=== PATIENT | male | born 1935 | race Caucasian/White ===

== ENCOUNTER 2018-09-02 13:13 | Inpatient (IN) | payer OTHER, BC ==
[2018-09-02 13:37] VITALS: BMI 25.1
--- NOTE | 2018-09-02 13:54 | PDOC ---
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 4 days ago pt was able to attend f/u with physician at [facility] with only a complaint of increased tiredness which was attributed to an inability to sleep and some constipation which has resolved since that visit. Family expresses concern that patient has been taking melatonin for sleep and was concerned this morning that increased lethargy was side effect of melatonin, however brought him in when he did not return to baseline this morning after a while. The family states he has had no specific complaints in the last few days other than feeling tired. <Florentin Shine - Last Filed: 09/02/18 19:50> - General Chief Complaint: SIRS, Suspected/Possible Stated Complaint: LETHARGY Past History <RenanJs - Last Filed: 09/02/18 18:25> <Klarissa Mcghee - Last Filed: 09/02/18 19:47> - Past Medical History Anemia: Yes (JULIET) Asthma: Yes Cancer: Yes (renal) Cardiac Disorders: No CVA: No COPD: Yes CHF: No Dementia: No Diabetes: Yes GI Disorders: Yes (COLON POLYPS;BARRETTS;GERD) Disorders: No HTN: Yes Hypercholesterolemia: Yes Liver Disease: No Seizures: No Thyroid Disease: No - Surgical History Abdominal Surgery: No Appendectomy: No Cardiac Surgery: No Cholecystectomy: No Lung Surgery: No Neurologic Surgery: No Orthopedic Surgery: Yes (knee sx b/l RIGHT KNEE LIGAMENT SX, LEFT KNEE) - Suicide/Smoking/Psychosocial Hx Smoking History: Former smoker Have you smoked in the past 12 months: No Number of Cigarettes Smoked Daily: 10 Information on smoking cessation initiated: No 'Breaking Loose' booklet given: 03/18/16 Hx Alcohol Use: No Drug/Substance Use Hx: No Substance Use Type: None Hx Substance Use Treatment: No <Florentin Shine - Last Filed: 09/02/18 19:50> - Past Medical History Allergies/Adverse Reactions: Allergies Allergy/AdvReac Type Severity Reaction Status Date / Time No Known Drug Allergies Allergy Verified 03/18/16 13:43 Home Medications: Ambulatory Orders Albuterol Sulfate [Proair Hfa] 8.5 gm IH PRN PRN 09/02/18 Fenofibrate Nanocrystallized [Tricor] 145 mg PO DAILY 09/02/18 Finasteride [Proscar] 5 mg PO DAILY 09/02/18 Fluticasone Propionate [Flovent Diskus] 250 mcg IH DAILY 09/02/18 Furosemide [Lasix] 40 mg PO DAILY 09/02/18 Ipratropium/Albuterol Sulfate [Combivent Respimat Inhal [place]] 4 gm IH DAILY 08/22 Meloxicam 7.5 mg PO DAILY 09/02/18 Metoprolol Tartrate 150 mg PO BID 09/02/18 Pregabalin [Lyrica] 100 mg PO BID 09/02/18 Sitagliptin Phosphate [Januvia] 50 mg PO DAILY 09/02/18 Tamsulosin HCl [Flomax] 0.4 mg PO DAILY 09/02/18 Tiotropium [place] [Spiriva Respimat] 4 gm IH DAILY 09/02/18 *Physical Exam - Vital Signs Last Vital Signs Temp Pulse Resp BP Pulse Ox 97.7 F 85 18 105/69 95 09/02/18 17:57 09/02/18 17:57 09/02/18 17:57 09/02/18 17:57 09/02/18 17:57 <Js Urrutia - Last Filed: 09/02/18 18:25> - Vital Signs Last Vital Signs Temp Pulse Resp BP Pulse Ox 97.7 F 85 18 105/69 95 09/02/18 17:57 09/02/18 17:57 09/02/18 17:57 09/02/18 17:57 09/02/18 17:57 <Klarissa Mcghee - Last Filed: 09/02/18 19:47> - Vital Signs Last Vital Signs Temp Pulse Resp BP Pulse Ox 101.8 F H 102 H 20 128/80 74 L 09/02/18 13:15 09/02/18 13:15 09/02/18 13:15 09/02/18 13:15 09/02/18 13:15 - Physical Exam Comments: 09/02/18 13:54 GEN: minimally alert, unable to assess orientation HEENT: Very dry mucus membranes, PERRL NECK: no lymphadenopathy HEART: Tachycardic, regular rhythm, no murmurs noted LUNGS: Decreased breath sounds on the right towards the base ABDOMEN: Concave abdomen, otherwise soft with no grimace to palpation noted EXTREMITIES: 1+ pulses, 4 second capillary refilling time NEURO: Not following commands or able to comply with neurological assessment <Florentin Shine - Last Filed: 09/02/18 19:50> Moderate Sedation - Procedure Monitoring Vital Signs: Procedure Monitoring Vital Signs Temperature 97.7 F 09/02/18 17:57 Pulse Rate 85 09/02/18 17:57 Respiratory Rate 18 09/02/18 17:57 Blood Pressure 105/69 09/02/18 17:57 O2 Sat by Pulse Oximetry (%) 95 09/02/18 17:57 <Js Urrutia - Last Filed: 09/02/18 18:25> - Procedure Monitoring Vital Signs: Procedure Monitoring Vital Signs Temperature 97.7 F 09/02/18 17:57 Pulse Rate 85 09/02/18 17:57 Respiratory Rate 18 09/02/18 17:57 Blood Pressure 105/69 09/02/18 17:57 O2 Sat by Pulse Oximetry (%) 95 09/02/18 17:57 <Klarissa Mcghee - Last Filed: 09/02/18 19:47> - Procedure Monitoring Vital Signs: Procedure Monitoring Vital Signs Temperature 101.8 F H 09/02/18 13:15 Pulse Rate 102 H 09/02/18 13:15 Respiratory Rate 20 09/02/18 13:15 Blood Pressure 128/80 09/02/18 13:15 O2 Sat by Pulse Oximetry (%) 74 L 09/02/18 13:15 <Florentin Shine - Last Filed: 09/02/18 19:50> ED Treatment Course - LABORATORY CBC & Chemistry Diagram: 09/02/18 14:47 09/02/18 14:47 - ADDITIONAL ORDERS Additional order review: Laboratory Results 09/02/18 09/02/18 09/02/18 16:08 15:20 15:10 PT with INR INR PTT (Actin FS) Sodium Potassium Chloride Carbon Dioxide Anion Gap BUN Creatinine Creat Clearance w eGFR Random Glucose Lactic Acid 2.6 H* Calcium Total Bilirubin AST ALT Alkaline Phosphatase Troponin I 0.11 H Total Protein Albumin Urine Color Yellow Urine Appearance Clear Urine pH 5.0 Ur Specific [place] 1.015 Urine Protein 2+ H Urine Glucose (UA) Negative Urine Ketones Negative Urine Blood Negative Urine Nitrite Negative Urine Bilirubin Negative Urine Urobilinogen 2.0 Ur Leukocyte Esterase Negative Urine WBC (Auto) <1 Urine RBC (Auto) <1 Ur Epithelial Cells Rare Granular Casts 3 Urine Mucus Rare 09/02/18 09/02/18 14:47 14:47 PT with INR 14.00 H INR 1.18 H PTT (Actin FS) 23.8 L Sodium 142 Potassium 3.9 Chloride 105 Carbon Dioxide 28 Anion Gap 10 BUN 49 H Creatinine 2.0 H Creat Clearance w eGFR 32.31 Random Glucose 117 H Lactic Acid Calcium 8.4 L Total Bilirubin 0.9 AST 35 ALT 9 L Alkaline Phosphatase 51 Troponin I Total Protein 7.7 Albumin 2.2 L Urine Color Urine Appearance Urine pH Ur Specific [place] Urine Protein Urine Glucose (UA) Urine Ketones Urine Blood Urine Nitrite Urine Bilirubin Urine Urobilinogen Ur Leukocyte Esterase Urine WBC (Auto) Urine RBC (Auto) Ur Epithelial Cells Granular Casts Urine Mucus 09/02/18 14:47 RBC 3.34 L MCV 92.3 MCHC 33.0 RDW 20.6 H MPV 8.0 Neutrophils % 91.7 H Lymphocytes % 2.1 L Monocytes % 5.8 Eosinophils % 0.3 Basophils % 0.1 - RADIOLOGY Radiology Studies Ordered: Category Date Time Status CHEST X-RAY PORTABLE* [RAD] Stat Radiology 09/02/18 14:03 Completed - Medications Given in the ED: ED Medications Discontinued Medications Generic Name Dose Route Start Last Admin Trade Name Freq PRN Reason Stop Dose Admin Acetaminophen 1,000 mg 09/02/18 16:16 09/02/18 16:26 Ofirmev Injection - IVPB 09/02/18 16:17 1,000 mg ONCE ONE Administration Vancomycin HCl 1,250 mg/ 250 mls @ 250 mls/2 hr 09/02/18 16:11 09/02/18 17:59 Dextrose IVPB 09/02/18 18:10 250 mls/2 hr ONCE ONE Administration Protocol Piperacillin Sod/Tazobactam 50 mls @ 100 mls/hr 09/02/18 16:11 09/02/18 16:26 Sod 3.375 gm/ Dextrose IVPB 09/02/18 16:40 100 mls/hr ONCE ONE Administration Protocol Lactated Ringer's 1,000 ml 09/02/18 14:39 09/02/18 14:48 Lactated Ringers Solution IV 09/02/18 14:40 1,000 ml ONCE ONE Administration Lactated Ringer's 1,000 ml 09/02/18 16:25 09/02/18 16:27 Lactated Ringers Solution IV 09/02/18 16:26 1,000 ml ONCE ONE Administration <Js Urrutia - Last Filed: 09/02/18 18:25> - LABORATORY CBC & Chemistry Diagram: 09/02/18 14:47 09/02/18 14:47 - ADDITIONAL ORDERS Additional order review: Laboratory Results 09/02/18 09/02/18 09/02/18 16:08 15:20 15:10 PT with INR INR PTT (Actin FS) Sodium Potassium Chloride Carbon Dioxide Anion Gap BUN Creatinine Creat Clearance w eGFR Random Glucose Lactic Acid 2.6 H* Calcium Total Bilirubin AST ALT Alkaline Phosphatase Troponin I 0.11 H Total Protein Albumin Urine Color Yellow Urine Appearance Clear Urine pH 5.0 Ur Specific [place] 1.015 Urine Protein 2+ H Urine Glucose (UA) Negative Urine Ketones Negative Urine Blood Negative Urine Nitrite Negative Urine Bilirubin Negative Urine Urobilinogen 2.0 Ur Leukocyte Esterase Negative Urine WBC (Auto) <1 Urine RBC (Auto) <1 Ur Epithelial Cells Rare Granular Casts 3 Urine Mucus Rare 09/02/18 09/02/18 14:47 14:47 PT with INR 14.00 H INR 1.18 H PTT (Actin FS) 23.8 L Sodium 142 Potassium 3.9 Chloride 105 Carbon Dioxide 28 Anion Gap 10 BUN 49 H Creatinine 2.0 H Creat Clearance w eGFR 32.31 Random Glucose 117 H Lactic Acid Calcium 8.4 L Total Bilirubin 0.9 AST 35 ALT 9 L Alkaline Phosphatase 51 Troponin I Total Protein 7.7 Albumin 2.2 L Urine Color Urine Appearance Urine pH Ur Specific [place] Urine Protein Urine Glucose (UA) Urine Ketones Urine Blood Urine Nitrite Urine Bilirubin Urine Urobilinogen Ur Leukocyte Esterase Urine WBC (Auto) Urine RBC (Auto) Ur Epithelial Cells Granular Casts Urine Mucus 09/02/18 14:47 RBC 3.34 L MCV 92.3 MCHC 33.0 RDW 20.6 H MPV 8.0 Neutrophils % 91.7 H Lymphocytes % 2.1 L Monocytes % 5.8 Eosinophils % 0.3 Basophils % 0.1 - Medications Given in the ED: ED Medications Discontinued Medications Generic Name Dose Route Start Last Admin Trade Name Rosemary PRN Reason Stop Dose Admin Acetaminophen 1,000 mg 09/02/18 16:16 09/02/18 16:26 Ofirmev Injection - IVPB 09/02/18 16:17 1,000 mg ONCE ONE Administration Dexamethasone Sodium Phosphate 10 mg 09/02/18 18:23 09/02/18 18:51 Decadron Injection - IVPUSH 09/02/18 18:24 10 mg ONCE ONE Administration Vancomycin HCl 1,250 mg/ 250 mls @ 250 mls/2 hr 09/02/18 16:11 09/02/18 17:59 Dextrose IVPB 09/02/18 18:10 250 mls/2 hr ONCE ONE Administration Protocol Piperacillin Sod/Tazobactam 50 mls @ 100 mls/hr 09/02/18 16:11 09/02/18 16:26 Sod 3.375 gm/ Dextrose IVPB 09/02/18 16:40 100 mls/hr ONCE ONE Administration Protocol Lactated Ringer's 1,000 ml 09/02/18 14:39 09/02/18 14:48 Lactated Ringers Solution IV 09/02/18 14:40 1,000 ml ONCE ONE Administration Lactated Ringer's 1,000 ml 09/02/18 16:25 09/02/18 16:27 Lactated Ringers Solution IV 09/02/18 16:26 1,000 ml ONCE ONE Administration - Additional Consults Time Called: 19:45 Consult/PCP: Paged neurosurgery theater projectionist <Kalrissa Mcghee - Last Filed: 09/02/18 19:47> - LABORATORY CBC & Chemistry Diagram: 09/02/18 14:47 09/02/18 14:47 <Florentin Shine - Last Filed: 09/02/18 19:50> Medical Decision Making - Medical Decision Making 09/02/18 16:27 82 yo male with known Renal CA and chest mass presents with increased lethargy for 2-3 days. Full sepsis workup including CBC, CMP, Lactic acid, CXR, EKG, UA/ Culture, blood culture pending. CT head as pt currently not following commands or very responsive. CXR noted without any concerning changes, however patient is very dry and CXR could be limited exam. Adequately volume resuscitate/Vanc/Zosyn and reassess. IV Ofirmev for fever 09/02/18 19:29 CBC okay. BUN/Cr 49/2.0. Lactic acid 2.6. 2L LR given. repeat Lactic acid pending Troponin 0.11, repeat pending. CT Chest with RLL changes consistent with early pneumonia vs atelectasis 6cm x 6cm x 1cm ulceration noted on sacrum, wound culture sent 09/02/18 19:49 Case discussed with hospitalist CAREER AND GUIDANCE COUNSELOR for admission. Will admit to telemetry for now. <Florentin Shine - Last Filed: 09/02/18 19:50> *DC/Admit/Observation/Transfer <Js Urrutia - Last Filed: 09/02/18 18:25> <Klarissa Mcghee - Last Filed: 09/02/18 19:47> - Discharge Dispostion Decision to Admit order: Yes <Florentin Shine - Last Filed: 09/02/18 19:50> Diagnosis at time of Disposition: Brain mass, History of nephrectomy Altered mental status Qualifiers: Altered mental status type: unspecified Qualified Code(s): R41.82 - Altered mental status, unspecified Renal cancer Qualifiers: Laterality: unspecified laterality Qualified Code(s): C64.9 - Malignant neoplasm of unspecified kidney, except renal pelvis Sacral ulcer Qualifiers: Non-pressure ulcer stage: with necrosis of muscle Qualified Code(s): 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
[2018-09-02] MEDS ORDERED: LACTATED RINGERS SOLUTION 1000 ML INFUS.BAG IV ONE ×2 (14:39→16:25)
--- NOTE | 2018-09-02 15:17 | PDOC ---
Attending Attestation - HPI HPI: 09/02/18 16:32 The patient is a 82 year old male with a past medical history of renal cancer s/ p nephrectomy and a mass in chest (as per family, possible metastatic from kidney), HTN, HLD, and diabetes here today for evaluation of lethargy. The patients family reports that the patient has been feeling more and more tired in the past 4 days and brought the patient in today due to increased lethargy. Pt has a history of medistainal masssp esophagram that was aborted as pt was uanble to tolerate, with questionalbe perofration, Patients family is unaware of any other patient complaints. History provided by family as pt unable to give history. Allergies: NKDA - Medical Decision Making 09/02/18 16:32 Documentation prepared by MAGNO Castillo, acting as medical imaging director for Js Urrutia MD. <Max Cano - Last Filed: 09/02/18 16:32> - Resident Resident Name: Florentin Shine - ED Attending Attestation I have performed the following: I have examined & evaluated the patient, The case was reviewed & discussed with the resident, I agree w/resident's findings & plan, Exceptions are as noted - Physicial Exam PE: 09/02/18 15:31 GENERAL: The patient is lethargic, minimally responsive to painful stimilus HEAD: Normocephalic, atraumatic. EYES: no conjunivtival injection, discongugate gaze ENT: Normal voice, dry mucous membranes. NECK: Normal range of motion, supple LUNGS: Breath sounds equal, clear to auscultation bilaterally. No wheezes, no rhonchi, no rales. HEART: Regular rate and rhythm, normal S1 and S2 without murmur, rub or gallop. ABDOMEN: Soft, nontender, No guarding, no rebound. . No CVA tenderness EXTREMITIES: Normal range of motion, +edema b/l in feet, nontender. NEUROLOGICAL: No facial assymetry, but exam limited due to patient condition PSYCH: Normal mood, normal affect. SKIN: Warm, Dry, increased turgor, 6cm sacral ulcer with mild surrounding erythema - Medical Decision Making 09/02/18 15:14 82y M hx of htn, hl, dm (off meds for all now), renal ca s/p nephrectomy with mestatstic mass in the chest that he follows up at [facility], concerning for possible invasion into esophagus s/p esophagram but was unable to tolerate/ complete with thorught of possible perforation of esophagus. per famly, but was toleratin goral intake and was at baseline status until a few days where he was more lethargic, not really waking up, an dnot really eating/drinking so the bourgt the patient for further evaluation. history limited due to the patients clinical status Recently was walking around, ambulatory as rcently tuesday. has been more tired, fatigued. Differential for the patient's symptoms includes possible anemia, metabolic derangements, dehydration, CVA, occult infection, considere possible mediastinitis We'll check CBC, CMP, sepsis or septic obtained Fluids for hydration CT head to rule out CvA We will reassess, dissipate admission Had discussions with goals of care - DNR/DNI signed also approached possible hospice/palliative caer, but it seems pt would not be interested in it per family PMD Dr Mitchell 09/02/18 18:[address] head resulted withs several masses with vasogenic edema largest measuring approx 2x1cm will give pt 10mg decadron will admit for further management <Js Urrutia - Last Filed: 09/04/18 16:12>
[2018-09-02 15:31] LABS: BASO % 0.1 % (0-2.0); EOS % 0.3 % (0-4.5); HEMATOCRIT 30.8 % (35.4-49); HEMOGLOBIN 10.2 GM/dL (11.7-16.9); LYMPH % 2.1 % (8-40); MCH 30.4 pg (25.7-33.7); MEAN CELL VOLUME 92.3 fl (80-96); MONO % 5.8 % (3.8-10.2); NEUT % 91.7 % (42.8-82.8); PLATELET COUNT 344 K/MM3 (134-434); RBC 3.34 M/mm3 (4.00-5.60); RDW 20.6 % (11.9-15.9); WHITE BLOOD COUNT 7.4 K/mm3 (4.0-10.0)
[2018-09-02 16:11] LABS: INR 1.18 (0.83-1.09)
[2018-09-02] MEDS ORDERED: PIPERACILLIN/TAZOB 3.375 GM 3.375 GM in DEXTROSE 5%-WATER - 50 ML IVPB ONE (16:11)
[2018-09-02] MEDS ORDERED: VANCOMYCIN HCL 1,250 MG in DEXTROSE 5%-WATER - 250 ML IVPB ONE (16:11)
[2018-09-02 16:13] LABS: ACTIVATED PTT 23.8 SECONDS (25.2-36.5)
[2018-09-02] MEDS ORDERED: PIPERACILLIN/TAZOB 3.375 GM 3.375 GM/50 ML BAG IVPB ONE (16:15)
[2018-09-02] MEDS ORDERED: ACETAMINOPHEN 1000 MG/100 ML VIAL (NON FORMULARY) IVPB ONE (16:16)
[2018-09-02] MEDS ORDERED: ACETAMINOPHEN INJECTION 100 ML IVPB ONE (16:17)
[2018-09-02 16:28] LABS: URINE APPEARANCE CLEAR; URINE BILIRUBIN NEGATIVE (<2.0 mg/dL); URINE COLOR YELLOW; URINE GLUCOSE (UA) NEGATIVE (NEGATIVE); URINE KETONE NEGATIVE (NEGATIVE); URINE LEUK ESTERASE NEGATIVE (NEGATIVE); URINE NITRITE NEGATIVE (NEGATIVE); URINE PROTEIN 2+ (NEGATIVE)
[2018-09-02 16:45] LABS: EPI CELLS RARE /HPF (FEW); GRANULAR CASTS 3 /lpf; URINE MUCUS RARE
[2018-09-02 16:54] LABS: ALBUMIN 2.2 g/dl (3.4-5.0); ALK PHOS 51 U/L (45-117); ANION GAP 10 MMOL/L (8-16); BILIRUBIN,TOTAL 0.9 mg/dL (0.2-1); BLOOD UREA NITROGEN 49 mg/dL (7-18); CALCIUM 8.4 mg/dL (8.5-10.1); CHLORIDE 105 mmol/L (98-107); CO2 28 mmol/L (21-32); GLUCOSE,RANDOM 117 mg/dL (74-106); POTASSIUM 3.9 mmol/L (3.5-5.1); SGOT/AST 35 U/L (15-37); SGPT/ALT 9 U/L (13-61); SODIUM 142 mmol/L (136-145); TOT PROT 7.7 g/dl (6.4-8.2)
[2018-09-02 17:32] LABS: ANISOCYTOSIS 2+; MACROCYTOSIS 1+
[2018-09-02 17:33] LABS: OVALOCYTE 1+; PLATELET ESTIMATE ADEQUATE
[2018-09-02] MEDS ORDERED: MAG HYDROX/AL HYDROX/SIMETH 30 ML UNIT-DOSE CUP ONE (18:00)
[2018-09-02] MEDS ORDERED: DEXAMETHASONE SOD PHOSPHATE 10 MG/1 ML VIAL IVPUSH ONE (18:23)
[2018-09-02] MEDS ORDERED: DEXAMETHASONE SOD PHOSPHATE 10 MG/1 ML VIAL ONE (18:34)
--- NOTE | 2018-09-02 20:31 | CONSULT ---
Consult Consult Specialty:: Cardiology Referred by:: Medicine Reason for Consultation:: (+) troponin - History of Present Illness History of Present Illness: 82 yo male PMH Renal CA s/p nephrectomy with chest mets Known HTN, HLD and DM Now presents today with increased lethargy and decreased activity and mental status worsening over the last few days. ? taking melatonin for sleep and there was concern that his MS did not return to baseline the morning of his presentation. As per ED notes, The family states he has had no specific complaints in the last few days other than feeling tired. Full sepsis workup including CBC, CMP, Lactic acid, CXR, EKG, UA/Culture, blood culture pending. Given volume resuscitate along with Abx Vanc/Zosyn and reassess. Also given IV Ofirmev for fever In the ED was found to be tachycardic, tachypneic, and febrile He was given two liters of fluids and admitted to telemetry. On tele a rapid response was called due to acute respiratory distress. He was found to have agonal breathing and hypotension. Family wanted patient DNR/DNI but agreed to transfer to ICU for further monitoring and management. Cardiology consulted for (+) troponin and hypotension - History Source History Provided By: Patient - Alcohol/Substance Use Hx Alcohol Use: No - Smoking History Smoking history: Former smoker Have you smoked in the past 12 months: No Aproximately how many cigarettes per day: 10 Home Medications - Allergies Allergies/Adverse Reactions: Allergies Allergy/AdvReac Type Severity Reaction Status Date / Time No Known Drug Allergies Allergy Verified 03/18/16 13:43 - Home Medications Home Medications: Ambulatory Orders Albuterol Sulfate [Proair Hfa] 8.5 gm IH PRN PRN 09/02/18 Fenofibrate Nanocrystallized [Tricor] 145 mg PO DAILY 09/02/18 Finasteride [Proscar] 5 mg PO DAILY 09/02/18 Fluticasone Propionate [Flovent Diskus] 250 mcg IH DAILY 09/02/18 Furosemide [Lasix] 40 mg PO DAILY 09/02/18 Ipratropium/Albuterol Sulfate [Combivent Respimat Inhal [place]] 4 gm IH DAILY 08/22 Meloxicam 7.5 mg PO DAILY 09/02/18 Metoprolol Tartrate 150 mg PO BID 09/02/18 Pregabalin [Lyrica] 100 mg PO BID 09/02/18 Sitagliptin Phosphate [Januvia] 50 mg PO DAILY 09/02/18 Tamsulosin HCl [Flomax] 0.4 mg PO DAILY 09/02/18 Tiotropium [place] [Spiriva Respimat] 4 gm IH DAILY 09/02/18 Physical Exam Vital Signs: Vital Signs Temperature 97.7 F 09/02/18 17:57 Pulse Rate 85 09/02/18 17:57 Respiratory Rate 18 09/02/18 17:57 Blood Pressure 105/69 09/02/18 17:57 O2 Sat by Pulse Oximetry (%) 95 09/02/18 17:57 Labs: CBC, BMP 09/02/18 14:47 09/02/18 14:47 Imaging - Results Other: Report Reviewed (05/2017: [place] Stress MPI Fixed inferior defect. Likely attenuation.) Assessment/Plan Patient prior to my assessment. Patient was made DNR/DNI
[2018-09-02] MEDS ORDERED: PANTOPRAZOLE SODIUM 40 MG VIAL IVPUSH ONE (20:44)
[2018-09-02] MEDS ORDERED: PANTOPRAZOLE SODIUM 40 MG VIAL ONE (21:01)
--- NOTE | 2018-09-02 21:09 | HP ---
CHIEF COMPLAINT: Lethargy, Fatigue, Generalized Malaise PCP: Dr. Darshana Brown HISTORY OF PRESENT ILLNESS: This is a 82 y/o man with a past medical history of Renal Ca s/p nephrectomy with likely met mass to chest "between heart, lungs, and esophagus" as per family," HTN, HLD, DM. Who presents to the ED with increased lethargy, decreased activity and mental status worsening over the last few days. Four days ago patient was able to attend f/u with physician at [facility] with only a complaint of increased tiredness which was attributed to an inability to sleep and some constipation which has resolved since that visit. Family expresses concern that patient has been taking Melatonin for sleep which has caused increased lethargy. However, they brought him in when he did not return to baseline this morning after a while. The family states he has had no specific complaints in the last few days other than feeling tired. ER course was notable for: (1) Severe Sepsis- T 101.8, P 102, BUN 49, LA 2.6 (2) Chest CT- ? RLL Infiltrate vs Atelectasis (3) Head CT- Several Masses, vasogenic edema 2x1cm Recent Travel: Unknown PAST MEDICAL HISTORY: See HPI PAST SURGICAL HISTORY: s/p Nephrectomy Social History: Smoking: Former Alcohol: None Drugs: None Family History: Non-Contributory Allergies No Known Drug Allergies Allergy (Verified 03/18/16 13:43) HOME MEDICATIONS: Home Medications Medication Instructions Recorded Albuterol Sulfate [Proair Hfa] 8.5 gm IH PRN PRN 09/02/18 Fenofibrate Nanocrystallized 145 mg PO DAILY 09/02/18 [Tricor] Finasteride [Proscar] 5 mg PO DAILY 09/02/18 Fluticasone Propionate [Flovent 250 mcg IH DAILY 09/02/18 Diskus] Furosemide [Lasix] 40 mg PO DAILY 09/02/18 Ipratropium/Albuterol Sulfate 4 gm IH DAILY 09/02/18 [Combivent Respimat Inhal [place]] Meloxicam 7.5 mg PO DAILY 09/02/18 Metoprolol Tartrate 150 mg PO BID 09/02/18 Pregabalin [Lyrica] 100 mg PO BID 09/02/18 Sitagliptin Phosphate [Januvia] 50 mg PO DAILY 09/02/18 Tamsulosin HCl [Flomax] 0.4 mg PO DAILY 09/02/18 Tiotropium [place] [Spiriva 4 gm IH DAILY 09/02/18 Respimat] REVIEW OF SYSTEMS: Clinical Condition CONSTITUTIONAL: Absent: fever, chills, diaphoresis, generalized weakness, malaise, loss of appetite, weight change HEENT: Absent: rhinorrhea, nasal congestion, throat pain, throat swelling, difficulty swallowing, mouth swelling, ear pain, eye pain, visual changes CARDIOVASCULAR: Absent: chest pain, syncope, palpitations, irregular heart rate, lightheadedness , peripheral edema RESPIRATORY: Absent: cough, shortness of breath, dyspnea with exertion, orthopnea, wheezing, stridor, hemoptysis GASTROINTESTINAL: Absent: abdominal pain, abdominal distension, nausea, vomiting, diarrhea, constipation, melena, hematochezia GENITOURINARY: Absent: dysuria, frequency, urgency, hesitancy, hematuria, flank pain, genital pain MUSCULOSKELETAL: Absent: myalgia, arthralgia, joint swelling, back pain, neck pain SKIN: Absent: rash, itching, pallor HEMATOLOGIC/IMMUNOLOGIC: Absent: easy bleeding, easy bruising, lymphadenopathy, frequent infections ENDOCRINE: Absent: unexplained weight gain, unexplained weight loss, heat intolerance, cold intolerance NEUROLOGIC: Absent: headache, focal weakness or paresthesias, dizziness, unsteady gait, seizure, mental status changes, bladder or bowel incontinence PSYCHIATRIC: Absent: anxiety, depression, suicidal or homicidal ideation, hallucinations. PHYSICAL EXAMINATION Vital Signs - 24 hr 09/02/18 09/02/18 09/02/18 13:15 13:25 13:28 Temperature 101.8 F H Pulse Rate 102 H Pulse Rate [ 100 H Right Radial] Respiratory 20 20 Rate Blood Pressure 128/80 Blood Pressure 119/70 [Left Arm] O2 Sat by Pulse 74 L 97 97 Oximetry (%) 09/02/18 09/02/18 16:27 17:57 Temperature 97.7 F Pulse Rate Pulse Rate [ 96 H 85 Right Radial] Respiratory 20 18 Rate Blood Pressure Blood Pressure 115/69 105/69 [Left Arm] O2 Sat by Pulse 97 95 Oximetry (%) GENERAL: Obtunded, no response to sternal rub , in no acute distress. HEAD: Normal with no signs of trauma. EYES: Pupils equal, round and reactive to light, sclera anicteric, conjunctiva clear. No lid lag. EARS, NOSE, THROAT: Dry mucous membranes. Ears normal, nares patent, oropharynx clear without exudates. NECK: Passive range of motion, supple without lymphadenopathy, JVD, or masses. LUNGS: on NRB, Breath sounds diminished bilaterally, coarse rhonchi upper lobes , agonal respirations, and accessory muscle use. No wheezes. HEART: Regular rate and rhythm, normal S1 and S2 without murmur, rub or gallop. ABDOMEN: Soft, nontender, not distended, normoactive bowel sounds, no guarding, no rebound, no masses. No hepatomegaly or splenomegaly. MUSCULOSKELETAL: Passive range of motion at all joints. No bony deformities or tenderness. No CVA tenderness. UPPER EXTREMITIES: 2+ pulses, warm, well-perfused. No cyanosis. No clubbing. No peripheral edema. LOWER EXTREMITIES:+2 b/l peripheral edema. 2+ pulses, warm, well-perfused. No calf tenderness. NEUROLOGICAL: Obtunded- unable to assess. Gait not observed. PSYCHIATRIC: Obtunded- unable to assess SKIN: Sacral Ulcer- malodorous. Warm, dry, poor turgor, no rashes noted, normal capillary refill. Laboratory Results - last 24 hr 09/02/18 09/02/18 09/02/18 14:47 14:47 14:47 WBC 7.4 RBC 3.34 L Hgb 10.2 L Hct 30.8 L MCV 92.3 MCH 30.4 MCHC 33.0 RDW 20.6 H Plt Count 344 MPV 8.0 Absolute Neuts (auto) 6.7 Total Counted 100 Neutrophils % 91.7 H Neutrophils % (Manual) 92.0 H Band Neutrophils % 3.0 Lymphocytes % 2.1 L Lymphocytes % (Manual) 2.0 L Monocytes % 5.8 Monocytes % (Manual) 3 L Eosinophils % 0.3 Basophils % 0.1 Nucleated RBC % 0 Differential Comment Man diff performed Hypochromia 1+ Platelet Estimate Adequate Platelet Comment Poikilocytosis 1+ Anisocytosis 2+ Macrocytosis 1+ Ovalocytes 1+ PT with INR 14.00 H INR 1.18 H PTT (Actin FS) 23.8 L Sodium 142 Potassium 3.9 Chloride 105 Carbon Dioxide 28 Anion Gap 10 BUN 49 H Creatinine 2.0 H Creat Clearance w eGFR 32.31 Random Glucose 117 H Lactic Acid Calcium 8.4 L Total Bilirubin 0.9 AST 35 ALT 9 L Alkaline Phosphatase 51 Troponin I Total Protein 7.7 Albumin 2.2 L Urine Color Urine Appearance Urine pH Ur Specific [place] Urine Protein Urine Glucose (UA) Urine Ketones Urine Blood Urine Nitrite Urine Bilirubin Urine Urobilinogen Ur Leukocyte Esterase Urine WBC (Auto) Urine RBC (Auto) Ur Epithelial Cells Granular Casts Urine Mucus Influenza A (Rapid) Influenza B (Rapid) 09/02/18 09/02/18 09/02/18 15:10 15:20 16:08 WBC RBC Hgb Hct MCV MCH MCHC RDW Plt Count MPV Absolute Neuts (auto) Total Counted Neutrophils % Neutrophils % (Manual) Band Neutrophils % Lymphocytes % Lymphocytes % (Manual) Monocytes % Monocytes % (Manual) Eosinophils % Basophils % Nucleated RBC % Differential Comment Hypochromia Platelet Estimate Platelet Comment Poikilocytosis Anisocytosis Macrocytosis Ovalocytes PT with INR INR PTT (Actin FS) Sodium Potassium Chloride Carbon Dioxide Anion Gap BUN Creatinine Creat Clearance w eGFR Random Glucose Lactic Acid 2.6 H* Calcium Total Bilirubin AST ALT Alkaline Phosphatase Troponin I 0.11 H Total Protein Albumin Urine Color Yellow Urine Appearance Clear Urine pH 5.0 Ur Specific [place] 1.015 Urine Protein 2+ H Urine Glucose (UA) Negative Urine Ketones Negative Urine Blood Negative Urine Nitrite Negative Urine Bilirubin Negative Urine Urobilinogen 2.0 Ur Leukocyte Esterase Negative Urine WBC (Auto) <1 Urine RBC (Auto) <1 Ur Epithelial Cells Rare Granular Casts 3 Urine Mucus Rare Influenza A (Rapid) Influenza B (Rapid) 09/02/18 09/02/18 09/02/18 16:16 18:41 18:41 WBC RBC Hgb Hct MCV MCH MCHC RDW Plt Count MPV Absolute Neuts (auto) Total Counted Neutrophils % Neutrophils % (Manual) Band Neutrophils % Lymphocytes % Lymphocytes % (Manual) Monocytes % Monocytes % (Manual) Eosinophils % Basophils % Nucleated RBC % Differential Comment Hypochromia Platelet Estimate Platelet Comment Poikilocytosis Anisocytosis Macrocytosis Ovalocytes PT with INR INR PTT (Actin FS) Sodium Potassium Chloride Carbon Dioxide Anion Gap BUN Creatinine Creat Clearance w eGFR Random Glucose Lactic Acid 1.3 Calcium Total Bilirubin AST ALT Alkaline Phosphatase Troponin I 0.11 H Total Protein Albumin Urine Color Urine Appearance Urine pH Ur Specific [place] Urine Protein Urine Glucose (UA) Urine Ketones Urine Blood Urine Nitrite Urine Bilirubin Urine Urobilinogen Ur Leukocyte Esterase Urine WBC (Auto) Urine RBC (Auto) Ur Epithelial Cells Granular Casts Urine Mucus Influenza A (Rapid) Negative Influenza B (Rapid) Negative ASSESSMENT/PLAN: This is a 82 y/o man with a PMHx of: Renal Ca s/p Nephrectomy (mets Heart, Lungs , Esophagus), HTN, HLD, DM, Sacral Ulcer. Admitted to Telemetry for Sepsis secondary to pneumonia, upgraded to ICU for Septic Shock, Hypercapnia, Hypoxemia for further evaluation of their emergent medical condition. Plan: 1. Septic shock Likely secondary to Pneumonia vs Malignancy Admit ICU qSOFA 3 Sepsis Criteria MET V: T 101.8, P 102, R 28, Lactic Acid 2.6, BUN 49 Lactic Acid now 1.3 post fluid resuscitation Continue cardiac monitoring Patient is DNR/DNI, Comfort Measures Airway maintained via NRB ABG- Respiratory Acidosis: 7.16/86.3/103/29.4/94.5 Pressors Maintain MAP > [address]- ?RLL Infiltrate vs Atelectasis Blood Cultures-pending Urine Culture-pending Rapid Influenza- neg A+B Continue Vancomycin and Zosyn Appreciate ID consult Appreciate Pulmonology consult Appreciate Cardiology consult Continue Morphine Drip secondary to Comfort Measures 2. Pneumonia Will treat for CAP CURB65 Score 4 Blood Cultures-pending Continue Vancomycin and Zosyn renal dosing Monitor vitals Tylenol prn O2 3. Brain Mass Head CT- several masses, vasogenic edema 2x1 cm Neurology aware suggests MRI MRI of Brain- pending Appreciate Neurosurgery consult Decadron given in ED Will defer to Neurology Seizure Precautions 4. Renal Ca with mets s/p Nephrectomy 5. Acute Metabolic Encephalopathy Likely secondary to advance disease process Neurochecks Fall precautions 6. Sacral Ulcer Likely secondary to immobility Wound Care nurse for dressing changes Allevyn dressing Turn Q2H Air Mattress 7. Hypertension Hold meds secondary to Septic Shock Monitor BP closely 8. Hyperlipidemia Hold meds secondary to lethargy 9. Diabetes Mellitus Monitor BGMs Hold meds secondary to Septic Shock FEN Replete lytes prn Gentle IVF DVT ppx SCDs Heparin SQ Code Status: DNR/DNI, HCP, Comfort Measures Problem List - Problem (1) Severe sepsis with acute organ dysfunction Code(s): A41.9 - SEPSIS, UNSPECIFIED ORGANISM; R65.20 - SEVERE SEPSIS WITHOUT SEPTIC SHOCK (2) Pneumonia Code(s): J18.9 - PNEUMONIA, UNSPECIFIED ORGANISM (3) Acute metabolic encephalopathy Code(s): G93.41 - METABOLIC ENCEPHALOPATHY (4) Altered mental status Code(s): R41.82 - ALTERED MENTAL STATUS, UNSPECIFIED Qualifiers: Altered mental status type: unspecified Qualified Code(s): R41.82 - Altered mental status, unspecified (5) Sacral ulcer Code(s): L98.429 - NON-PRESSURE CHRONIC ULCER OF BACK WITH UNSPECIFIED SEVERITY Qualifiers: Non-pressure ulcer stage: with necrosis of muscle Qualified Code(s): L98.423 - Non-pressure chronic ulcer of back with necrosis of muscle (6) Renal cancer Code(s): C64.9 - MALIGNANT NEOPLASM OF UNSP KIDNEY, EXCEPT RENAL PELVIS Qualifiers: Laterality: unspecified laterality Qualified Code(s): C64.9 - Malignant neoplasm of unspecified kidney, except renal pelvis (7) Brain mass Code(s): G93.9 - DISORDER OF BRAIN, UNSPECIFIED (8) HTN (hypertension) Code(s): I10 - ESSENTIAL (PRIMARY) HYPERTENSION (9) Diabetes mellitus Code(s): E11.9 - TYPE 2 DIABETES MELLITUS WITHOUT COMPLICATIONS (10) HLD (hyperlipidemia) Code(s): E78.5 - HYPERLIPIDEMIA, UNSPECIFIED (11) History of nephrectomy Code(s): Z90.5 - ACQUIRED ABSENCE OF KIDNEY Visit type - Emergency Visit Emergency Visit: Yes ED Registration Date: 09/02/18 Care time: The patient presented to the Emergency Department on the above date and was hospitalized for further evaluation of their emergent condition. - New Patient This patient is new to me today: Yes Date on this admission: 09/02/18 - Critical Care Critical Care patient: Yes Total Critical Care Time (in minutes): 35 Critical Care Statement: The care of this patient involved high complexity decision making to prevent further life threatening deterioration of the patient 's condition and/or to evaluate & treat vital organ system(s) failure or risk of failure.
--- NOTE | 2018-09-02 22:13 | CON.NEURO ---
Consult Consult Specialty:: neurology Reason for Consultation:: AMS - History of Present Illness History of Present Illness: 82 yo male PMH Renal CA s/p nephrectomy with chest mets ;Known HTN, HLD and DM ; Now presents today with increased lethargy and decreased activity and mental status worsening over the last few days. ? taking melatonin for sleep and was concerned this morning that his MS did not return to baseline this morning. Pt has had respiratory distress and Rapid response was called ; not responsive . - Past Medical History Renal/: Yes: Cancer - Alcohol/Substance Use Hx Alcohol Use: No - Smoking History Smoking history: Former smoker Have you smoked in the past 12 months: No Aproximately how many cigarettes per day: 10 Home Medications - Allergies Allergies/Adverse Reactions: Allergies Allergy/AdvReac Type Severity Reaction Status Date / Time No Known Drug Allergies Allergy Verified 03/18/16 13:43 - Home Medications Home Medications: Ambulatory Orders Albuterol Sulfate [Proair Hfa] 8.5 gm IH PRN PRN 09/02/18 Fenofibrate Nanocrystallized [Tricor] 145 mg PO DAILY 09/02/18 Finasteride [Proscar] 5 mg PO DAILY 09/02/18 Fluticasone Propionate [Flovent Diskus] 250 mcg IH DAILY 09/02/18 Furosemide [Lasix] 40 mg PO DAILY 09/02/18 Ipratropium/Albuterol Sulfate [Combivent Respimat Inhal [place]] 4 gm IH DAILY 08/22 Meloxicam 7.5 mg PO DAILY 09/02/18 Metoprolol Tartrate 150 mg PO BID 09/02/18 Pregabalin [Lyrica] 100 mg PO BID 09/02/18 Sitagliptin Phosphate [Januvia] 50 mg PO DAILY 09/02/18 Tamsulosin HCl [Flomax] 0.4 mg PO DAILY 09/02/18 Tiotropium [place] [Spiriva Respimat] 4 gm IH DAILY 09/02/18 Review of Systems Unable to obtain ROS, reason: AMS Physical Exam-Neuro Vital Signs: Vital Signs Temperature 97.7 F 09/02/18 17:57 Pulse Rate 85 09/02/18 17:57 Respiratory Rate 18 09/02/18 17:57 Blood Pressure 105/69 09/02/18 17:57 O2 Sat by Pulse Oximetry (%) 95 09/02/18 17:57 Constitutional: Yes: Cachectic, Moderate Distress, Thin Neck: Yes: Supple Cardiovascular: Yes: Bradycardia Respiratory: Yes: Accessory Muscle Use, On Venti-Mask Musculoskeletal: Yes: WNL Labs: CBC, BMP 09/02/18 14:47 09/02/18 14:47 INR, PTT INR 1.18 (0.83-1.09) H 09/02/18 14:47 - Neuro Exam Level Of Consciousness: Yes: Comatose Eyes: Yes: Other ([place], VERY SLUGGISH ) Gag: Present Imaging - Results Cat Scan: Image Reviewed (multiple lesions) Problem List - Problems (1) Altered mental status Code(s): R41.82 - ALTERED MENTAL STATUS, UNSPECIFIED Qualifiers: Altered mental status type: unspecified Qualified Code(s): R41.82 - Altered mental status, unspecified (2) Brain mass Code(s): G93.9 - DISORDER OF BRAIN, UNSPECIFIED (3) History of nephrectomy Code(s): Z90.5 - ACQUIRED ABSENCE OF KIDNEY (4) Renal cancer Code(s): C64.9 - MALIGNANT NEOPLASM OF UNSP KIDNEY, EXCEPT RENAL PELVIS Qualifiers: Laterality: unspecified laterality Qualified Code(s): C64.9 - Malignant neoplasm of unspecified kidney, except renal pelvis (5) Sacral ulcer Code(s): L98.429 - NON-PRESSURE CHRONIC ULCER OF BACK WITH UNSPECIFIED SEVERITY Qualifiers: Non-pressure ulcer stage: with necrosis of muscle Qualified Code(s): L98.423 - Non-pressure chronic ulcer of back with necrosis of muscle Assessment/Plan 82 yo male PMH Renal CA s/p nephrectomy with chest mets ;Known HTN, HLD and DM ; Now presents today with increased lethargy , CTH wo indicative of multiple lesion w vasogenic edema . Pt has respiratory distress , on ventimask , not responsive . Given h/o renal cancer and CT finding suggestive of brain mets; poor prognosis due to multiple comorbidities. MRI brain w contrast when possible Neuro check q 1 hours dexamethazone 4 mg q8 hours load w keppra 1000 mg stat and 500 mg bid EEG routine Neuro sx consult Health maintenance per primary team. Thank you. Serafin Bradley MD
--- NOTE | 2018-09-02 22:41 | RAPID ---
Physical Examination Vital Signs: Vital Signs Temperature 97.7 F 09/02/18 17:57 Pulse Rate 85 09/02/18 17:57 Respiratory Rate 18 09/02/18 17:57 Blood Pressure 105/69 09/02/18 17:57 O2 Sat by Pulse Oximetry (%) 95 09/02/18 17:57 Labs: CBC, BMP 09/02/18 14:47 09/02/18 14:47 Rapid Response - Rapid Response Assessment: rapid response called overhead. pt was noted to have agonal breathing and hypoxia despite NRB. pt BP initially 80s/60s. pt received 2 L LR in ED, for concerns of sepsis and dehydration. Pt has PMH CKD w/ one kidney, and unknown LVEF fxn. PE 2mm sluggish pupils. non responsive to painful stimuli LL lobe rhonci RRR NTND 2+edema B/L in LE, warm, <2sec cap refill rpt vital 100s/40s A/P -pt is DNR/DNI. lengthy discussion w/ HCP daughter Nita by medicine and ICU teams. after explainaing pt clinical condition and status, family still open to Central line insertion, cvp, and pressors prn, however would like pt to be comfortable w/o expediting -CXR, ABG, ICU transfer for central line, cvp, and anticipation of pressors If CXR shows congestion c/w fluid overload will give Lasix IV bolus.
[2018-09-02 22:50] LABS: ALLENS TEST POSITIVE; ARTERIAL BLD GAS O2 SATURATION 94.5 % (90-98.9)
[2018-09-02 22:51] LABS: ARTERIAL BLOOD GAS PCO2 86.3 mmHg (35-45); ARTERIAL BLOOD GAS pH 7.16 (7.35-7.45)
--- NOTE | 2018-09-02 23:00 | CONSULT ---
Consultation: REQUESTING PROVIDER: CONSULT REQUEST: We have been asked to medically evaluate this patient for Acute hypoxic hypercapneic respiratory failure HISTORY OF PRESENT ILLNESS: Patient unable to provide information due to clinical condition. All information obtained from medical records and ED staff. Patient is an 82 year old male with a PMHx of Renal cell carcinoma s/p nephrectomy with mets, HTN, HLD, NIDDMII, who presented to the ED for worsening mental status, increased lethargy for the past two days. According to the family, patient was able to attend his follow up appointments at [facility] as of last week. However, this morning patient was not at baseline and had worsening lethargy, which prompted this hospital visit. Patient in the ED was found to be tachycardic, tachypneic, and febrile but with no source of infection. He was given two liters of fluids and admitted to telemetry. When patient was sent to Telemetry, a rapid response was called due to acute respiratory distress. He was found to have agonal breathing and hypotension. Spoke to family who wanted patient DNR/DNI but will consent to central line placement if needed. Patient then transferred to ICU for further monitoring and management. REVIEW OF SYSTEMS: Unable to assess PHYSICAL EXAMINATION Vital Signs 09/02/18 09/02/18 09/02/18 16:27 17:57 21:07 Temperature 97.7 F Pulse Rate Pulse Rate [ 96 H 85 84 Right Radial] Respiratory 20 18 20 Rate Blood Pressure Blood Pressure 115/69 105/69 108/68 [Left Arm] O2 Sat by Pulse 97 95 95 Oximetry (%) GENERAL: Lethargic, minimally responsive HEAD: Normal with no signs of trauma. EYES: Pin point pupils, PERRL, sclera anicteric, conjunctiva clear. ENT: Dry mucous membranes NECK: (-)JVD LUNGS: Non-rebreather with accessory muscle use. Decreased breath sounds throughout lung bases HEART: Regular rate and rhythm, normal S1 and S2 ABDOMEN: Soft, nontender, not distended, normoactive bowel sounds EXTREMITIES: 2+ pitting edema bilaterally NEUROLOGICAL: Unable to assess Laboratory Results 09/02/18 14:47 09/02/18 14:47 09/02/18 09/02/18 14:47 18:41 Total Bilirubin 0.9 AST 35 ALT 9 L Alkaline Phosphatase 51 Troponin I 0.11 H ABG pH 7.16 (7.35-7.45) L* 09/02/18 22:41 ABG pCO2 at Pt Temp 86.3 mmHg (35-45) H* 09/02/18 22:41 ABG pO2 at Pt Temp 103.0 mmHg (68-100) H 09/02/18 22:41 ABG HCO3 29.4 meq/L (22-26) H 09/02/18 22:41 ABG O2 Sat (Measured) 94.5 % (90-98.9) 09/02/18 22:41 ABG O2 Content 11.3 % vol (15-22) L 09/02/18 22:41 ABG Base Excess 0.0 meq/l (-2-2) 09/02/18 22:41 Active Medications Generic Name Dose Route Start Last Admin Trade Name Freq PRN Reason Stop Dose Admin Chlorhexidine Gluconate 1 applic 09/03/18 22:00 Hibiclens For Decolonization - TP HS JASPREET Mupirocin 1 applic 09/03/18 10:00 Bactroban Ointment (For Decolonization) - NS 09/08/18 09:59 BID JASPREET ASSESSMENT/PLAN: Patient is an 82 year old male who presented for increasing lethargy and worsening mental status. Patient was initially admitted to telemetry and a rapid response was called for acute hypoxic hypercapneic respiratory distress. NEURO -Patient AAOX0, lethargic, and minimally responsive -No sedation as patient has AMS and hypotensive PULM: #Acute Hypoxic Hypercapneic Respiratory Failure -ABG revealed pH 7.1 and co2 >86 -Patient on Non-rebreather and saturating >90 however continues to have agonal breathing -CXR revealed no infiltrate or pulmonary edema -Patient requested DNI and if has respiratory distress to make him comfortable -Continue IV antibiotics with Zosyn 3.375mg INFECTIOUS DISEASE: #Septic Shock from Unknown Source -Tachycardic, Febrile, Tachypneic -U/A negative, CXR revealed no infiltrates -Urine and blood cultures pending -Urine antigens and sputum cultures pending -Continue IV antibiotics with Zosyn and Vancomycin -Patient hypotensive with 2 liters given in ED and 250cc ordered in ICU -Patient requested Central line as last resort -Acetaminophen PRN for fevers CARDIOLOGY #HTN -Hypotension -Hold BP medications -Continue to monitor BP ENDOCRINOLOGY #NIDDMII -BGM -ISS -A1C tomorrow NEPHROLOGY #CKD with GREGORIA? -Unsure of baseline , however, patient is s/p nephrectomy -2 liters of fluids given -Urine lytes -Kidney U/S -Renally dose medications -Avoid nephrotoxic medications HEMATOLOGY #Renal Cell Carcinoma w/ Brain Mets? -Follows at [place] -Will need further history on treatment F/E/N -On no fluids -Electrolytes wnl -NPO Prophylaxis -Heparin 5000 units sq TID -No Gi required Disposition -DNR/DNI -ICU monitoring Natasha Deras [id number] Visit type - Emergency Visit Emergency Visit: Yes ED Registration Date: 09/02/18 Care time: The patient presented to the Emergency Department on the above date and was hospitalized for further evaluation of their emergent condition. - New Patient This patient is new to me today: Yes Date on this admission: 09/03/18 - Critical Care Critical Care patient: Yes Total Critical Care Time (in minutes): 45 Critical Care Statement: The care of this patient involved high complexity decision making to prevent further life threatening deterioration of the patient 's condition and/or to evaluate & treat vital organ system(s) failure or risk of failure.
[2018-09-02] MEDS ORDERED: SODIUM CHLORIDE 250 ML IV STA (23:02)
[2018-09-02] MEDS ORDERED: METOPROLOL TARTRATE 5 MG/5 ML VIAL IVPUSH ONE (23:27)
[2018-09-02] MEDS ORDERED: MORPHINE SULFATE 2 MG/ML VIAL IVPUSH ONE (23:30)
[2018-09-03] MEDS ORDERED: LORazepam 2 MG/ML SDV VIAL IVPUSH ONE (00:08)
[2018-09-03] MEDS ORDERED: LORazepam 2 MG/ML SDV VIAL ONE (00:13)
[2018-09-03] MEDS ORDERED: MORPHINE 100 MG in SODIUM CHLORIDE 98 ML IVPB SCH (00:45)
[2018-09-03] MEDS ORDERED: PIPERACILLIN/TAZOB 2.25 GM 2.25 GM in DEXTROSE 5%-WATER - 50 ML IVPB SCH (02:00)
[2018-09-03] MEDS ORDERED: HEPARIN NA (PORCINE) 5,000 UNITS/ML 1ML VIAL SQ SCH (06:00)
[2018-09-03 06:55] VITALS: TEMP 96
[2018-09-03] MEDS ORDERED: INSULIN SLIDING SCALE (NOVOLOG) 1 VIAL SQ SCH (07:00)
--- NOTE | 2018-09-03 08:28 | PN ---
Physical Exam: SUBJECTIVE: Patient seen and examined at bedside. He is not responsive to sternal rub, or painful stimuli. OBJECTIVE: Vital Signs Period Temp Pulse Resp BP Sys/Strickland Pulse Ox Last 24 Hr 96 F-101.8 F 72-135 4-20 60-128/38-80 28-99 GENERAL: The patient is awake, alert, and fully oriented, in no acute distress. HEENT: Normocephalic, atraumatic, PERRL. Orophyarnyx dry, without exudates. LUNGS: Breath sounds equal, CTA bilaterally. no wheezes, no crackles,. HEART: Regular rate and rhythm, S1, S2 auscultated. ABDOMEN: Soft, nontender, nondistended. EXTREMITIES: 1+ radial, dorsalis pedis pulses bilaterally. NEUROLOGICAL: Not responsive to sternal rub, or painful stimuli. SKIN: Warm, dry. Laboratory Results - last 24 hr 09/02/18 09/02/18 09/02/18 14:47 14:47 14:47 WBC 7.4 RBC 3.34 L Hgb 10.2 L Hct 30.8 L MCV 92.3 MCH 30.4 MCHC 33.0 RDW 20.6 H Plt Count 344 MPV 8.0 Absolute Neuts (auto) 6.7 Total Counted 100 Neutrophils % 91.7 H Neutrophils % (Manual) 92.0 H Band Neutrophils % 3.0 Lymphocytes % 2.1 L Lymphocytes % (Manual) 2.0 L Monocytes % 5.8 Monocytes % (Manual) 3 L Eosinophils % 0.3 Basophils % 0.1 Nucleated RBC % 0 Differential Comment Man diff performed Hypochromia 1+ Platelet Estimate Adequate Platelet Comment Poikilocytosis 1+ Anisocytosis 2+ Macrocytosis 1+ Ovalocytes 1+ PT with INR 14.00 H INR 1.18 H PTT (Actin FS) 23.8 L Anticoagulation Therapy Puncture Site ABG pH ABG pCO2 at Pt Temp ABG pO2 at Pt Temp ABG HCO3 ABG O2 Sat (Measured) ABG O2 Content ABG Base Excess Matt Test O2 Delivery Device Oxygen Flow Rate Vent Mode Vent Rate Mechanical Rate PEEP Pressure Support Vent Sodium 142 Potassium 3.9 Chloride 105 Carbon Dioxide 28 Anion Gap 10 BUN 49 H Creatinine 2.0 H Creat Clearance w eGFR 32.31 POC Glucometer Random Glucose 117 H Lactic Acid Calcium 8.4 L Total Bilirubin 0.9 AST 35 ALT 9 L Alkaline Phosphatase 51 Troponin I Total Protein 7.7 Albumin 2.2 L Urine Color Urine Appearance Urine pH Ur Specific [place] Urine Protein Urine Glucose (UA) Urine Ketones Urine Blood Urine Nitrite Urine Bilirubin Urine Urobilinogen Ur Leukocyte Esterase Urine WBC (Auto) Urine RBC (Auto) Ur Epithelial Cells Granular Casts Urine Mucus Influenza A (Rapid) Influenza B (Rapid) 09/02/18 09/02/18 09/02/18 15:10 15:20 16:08 WBC RBC Hgb Hct MCV MCH MCHC RDW Plt Count MPV Absolute Neuts (auto) Total Counted Neutrophils % Neutrophils % (Manual) Band Neutrophils % Lymphocytes % Lymphocytes % (Manual) Monocytes % Monocytes % (Manual) Eosinophils % Basophils % Nucleated RBC % Differential Comment Hypochromia Platelet Estimate Platelet Comment Poikilocytosis Anisocytosis Macrocytosis Ovalocytes PT with INR INR PTT (Actin FS) Anticoagulation Therapy Puncture Site ABG pH ABG pCO2 at Pt Temp ABG pO2 at Pt Temp ABG HCO3 ABG O2 Sat (Measured) ABG O2 Content ABG Base Excess Matt Test O2 Delivery Device Oxygen Flow Rate Vent Mode Vent Rate Mechanical Rate PEEP Pressure Support Vent Sodium Potassium Chloride Carbon Dioxide Anion Gap BUN Creatinine Creat Clearance w eGFR POC Glucometer Random Glucose Lactic Acid 2.6 H* Calcium Total Bilirubin AST ALT Alkaline Phosphatase Troponin I 0.11 H Total Protein Albumin Urine Color Yellow Urine Appearance Clear Urine pH 5.0 Ur Specific [place] 1.015 Urine Protein 2+ H Urine Glucose (UA) Negative Urine Ketones Negative Urine Blood Negative Urine Nitrite Negative Urine Bilirubin Negative Urine Urobilinogen 2.0 Ur Leukocyte Esterase Negative Urine WBC (Auto) <1 Urine RBC (Auto) <1 Ur Epithelial Cells Rare Granular Casts 3 Urine Mucus Rare Influenza A (Rapid) Influenza B (Rapid) 09/02/18 09/02/18 09/02/18 16:16 18:41 18:41 WBC RBC Hgb Hct MCV MCH MCHC RDW Plt Count MPV Absolute Neuts (auto) Total Counted Neutrophils % Neutrophils % (Manual) Band Neutrophils % Lymphocytes % Lymphocytes % (Manual) Monocytes % Monocytes % (Manual) Eosinophils % Basophils % Nucleated RBC % Differential Comment Hypochromia Platelet Estimate Platelet Comment Poikilocytosis Anisocytosis Macrocytosis Ovalocytes PT with INR INR PTT (Actin FS) Anticoagulation Therapy Puncture Site ABG pH ABG pCO2 at Pt Temp ABG pO2 at Pt Temp ABG HCO3 ABG O2 Sat (Measured) ABG O2 Content ABG Base Excess Matt Test O2 Delivery Device Oxygen Flow Rate Vent Mode Vent Rate Mechanical Rate PEEP Pressure Support Vent Sodium Potassium Chloride Carbon Dioxide Anion Gap BUN Creatinine Creat Clearance w eGFR POC Glucometer Random Glucose Lactic Acid 1.3 Calcium Total Bilirubin AST ALT Alkaline Phosphatase Troponin I 0.11 H Total Protein Albumin Urine Color Urine Appearance Urine pH Ur Specific [place] Urine Protein Urine Glucose (UA) Urine Ketones Urine Blood Urine Nitrite Urine Bilirubin Urine Urobilinogen Ur Leukocyte Esterase Urine WBC (Auto) Urine RBC (Auto) Ur Epithelial Cells Granular Casts Urine Mucus Influenza A (Rapid) Negative Influenza B (Rapid) Negative 09/02/18 09/02/18 22:41 23:36 WBC RBC Hgb Hct MCV MCH MCHC RDW Plt Count MPV Absolute Neuts (auto) Total Counted Neutrophils % Neutrophils % (Manual) Band Neutrophils % Lymphocytes % Lymphocytes % (Manual) Monocytes % Monocytes % (Manual) Eosinophils % Basophils % Nucleated RBC % Differential Comment Hypochromia Platelet Estimate Platelet Comment Poikilocytosis Anisocytosis Macrocytosis Ovalocytes PT with INR INR PTT (Actin FS) Anticoagulation Therapy No Result Required. Puncture Site Right radial ABG pH 7.16 L* ABG pCO2 at Pt Temp 86.3 H* ABG pO2 at Pt Temp 103.0 H ABG HCO3 29.4 H ABG O2 Sat (Measured) 94.5 ABG O2 Content 11.3 L ABG Base Excess 0.0 Matt Test Positive O2 Delivery Device Nonrebreather Oxygen Flow Rate 100% Vent Mode No Result Required. Vent Rate No Result Required. Mechanical Rate No Result Required. PEEP 0.0 Pressure Support Vent No Result Required. Sodium Potassium Chloride Carbon Dioxide Anion Gap BUN Creatinine Creat Clearance w eGFR POC Glucometer 196 Random Glucose Lactic Acid Calcium Total Bilirubin AST ALT Alkaline Phosphatase Troponin I Total Protein Albumin Urine Color Urine Appearance Urine pH Ur Specific [place] Urine Protein Urine Glucose (UA) Urine Ketones Urine Blood Urine Nitrite Urine Bilirubin Urine Urobilinogen Ur Leukocyte Esterase Urine WBC (Auto) Urine RBC (Auto) Ur Epithelial Cells Granular Casts Urine Mucus Influenza A (Rapid) Influenza B (Rapid) Active Medications Generic Name Dose Route Start Last Admin Trade Name Freq PRN Reason Stop Dose Admin Chlorhexidine Gluconate 1 applic 09/03/18 22:00 Hibiclens For Decolonization - TP HS JASPREET Piperacillin Sod/Tazobactam 50 mls @ 100 mls/hr 09/03/18 02:00 Sod 2.25 gm/ Dextrose IVPB Q8H-IV JASPREET Protocol Morphine Sulfate 100 mg/ 100 mls @ 1 mls/hr 09/03/18 00:45 09/03/18 02:26 Sodium Chloride IVPB 2 mg/hr TITR JASPREET 2 mls/hr Titration Protocol 1 MG/HR Mupirocin 1 applic 09/03/18 10:00 Bactroban Ointment (For Decolonization) - NS 09/08/18 09:59 BID [facility] ASSESSMENT/PLAN: Patient is an 82 year old male with history of metastatic renal cell carcinoma s /p nephrectomy, hypertension, hyperl
--- NOTE | 2018-09-03 09:40 | HOSP ---
Physical Examination Vital Signs: Vital Signs Temperature 96 F L 09/03/18 06:00 Pulse Rate 128 H 09/03/18 06:00 Respiratory Rate 4 L 09/03/18 05:07 Blood Pressure 60/38 L 09/03/18 06:00 O2 Sat by Pulse Oximetry (%) 99 09/03/18 00:00 Labs: CBC, BMP 09/02/18 14:47 09/02/18 14:47 Hospitalist Encounter Assessment: Asked to assess patient for unresponsiveness. No spontaneous movements present. No response to verbal, or tactile stimulus. Patient does not take spontaneous breaths. Pupils dilated to 4mm bilaterally, nonresponsive to light. No cardiac sounds auscultated over bilateral chest lorenzana. No breath sounds auscultated over bilateral respiratory lorenzana. No carotid, or femoral pulses palpated bilaterally. Patient was DNR, DNI comfort measures only. Time of 09:35 09/03/2018. Family notified (Kiko Snow, and Leslie Snow), emotional support provided. Attending physician, and primary team notified. [facility] contacted -patient is not candidate for tissue donation. Pallavi Raymond [phone] Visit type - Emergency Visit Emergency Visit: Yes ED Registration Date: 09/02/18 Care time: The patient presented to the Emergency Department on the above date and was hospitalized for further evaluation of their emergent condition. - New Patient This patient is new to me today: Yes Date on this admission: 09/03/18 - Critical Care Critical Care patient: Yes Total Critical Care Time (in minutes): 35 Critical Care Statement: The care of this patient involved high complexity decision making to prevent further life threatening deterioration of the patient 's condition and/or to evaluate & treat vital organ system(s) failure or risk of failure.
--- NOTE | 2018-09-03 09:44 | PN ---
Teaching Attending Note Name of Resident: El Garcia ATTENDING PHYSICIAN STATEMENT I saw and evaluated the patient. I reviewed the resident's note and discussed the case with the resident. I agree with the resident's findings and plan as documented. SUBJECTIVE: Patient seen and examined at bedside. Not responsive to sternal rub, or painful stimuli. On comfort measures only. Dr Ledesma
[2018-09-03] MEDS ORDERED: MUPIROCIN 2% TOPICAL OINTMENT FOR DECOLONIZATION NS SCH (10:00)
--- NOTE | 2018-09-03 10:46 | CONSULT ---
Consult - text type - Consultation Consultation Note: NEUROSURGERY CONSULTATION Patient with metastatic RCC with brain mets on new CT and MRI with progressively diminished mental status despite IV steroids. Patient made comfort measures only and .
[2018-09-03 10:48] VITALS: BP 57/38; PULSE 122
--- NOTE | 2018-09-03 11:48 | PN ---
Progress Note (short form) - Note Progress Note: pt today
[2018-09-03] MEDS ORDERED: CHLORHEXIDINE GLUCONATE 4% CLEANSER FOR DECOLONIZATION TP SCH (22:00)
--- NOTE | 2018-09-04 21:04 | DS ---
Physical Examination Vital Signs: Vital Signs Temperature 96 F L 09/03/18 06:00 Pulse Rate 122 H 09/03/18 09:00 Respiratory Rate 4 L 09/03/18 05:07 Blood Pressure 57/38 L 09/03/18 09:00 O2 Sat by Pulse Oximetry (%) 99 09/03/18 00:00 Labs: CBC, BMP 09/02/18 14:47 09/02/18 14:47 Discharge Summary Reason For Visit: SKIN ULCER OF SACRUM,MASS OF BRAIN Hospital Course: pt with pmhx as documented -- today . Condition: - Instructions Referrals: Darshana Mitchell MD [Primary Care Provider] - Disposition: - Home Medications Comprehensive Discharge Medication List: Ambulatory Orders Albuterol Sulfate [Proair Hfa] 8.5 gm IH PRN PRN 09/02/18 Fenofibrate Nanocrystallized [Tricor] 145 mg PO DAILY 09/02/18 Finasteride [Proscar] 5 mg PO DAILY 09/02/18 Fluticasone Propionate [Flovent Diskus] 250 mcg IH DAILY 09/02/18 Furosemide [Lasix] 40 mg PO DAILY 09/02/18 Ipratropium/Albuterol Sulfate [Combivent Respimat Inhal [place]] 4 gm IH DAILY 08/22 Meloxicam 7.5 mg PO DAILY 09/02/18 Metoprolol Tartrate 150 mg PO BID 09/02/18 Pregabalin [Lyrica] 100 mg PO BID 09/02/18 Sitagliptin Phosphate [Januvia] 50 mg PO DAILY 09/02/18 Tamsulosin HCl [Flomax] 0.4 mg PO DAILY 09/02/18 Tiotropium [place] [Spiriva Respimat] 4 gm IH DAILY 09/02/18
--- NOTE | 2018-09-05 13:54 | EKG ---
Test Reason : Blood Pressure : / mmHG Vent. Rate : 103 BPM Atrial Rate : 103 BPM P-R Int : 134 ms QRS Dur : 106 ms QT Int : 360 ms P-R-T Axes : 072 063 066 degrees QTc Int : 471 ms SINUS TACHYCARDIA POSSIBLE LEFT ATRIAL ENLARGEMENT INCOMPLETE RIGHT BUNDLE BRANCH BLOCK NONSPECIFIC ST AND T WAVE ABNORMALITY ABNORMAL ECG WHEN COMPARED WITH ECG OF 12-NOV-2015 07:23, SIGNIFICANT CHANGES HAVE OCCURRED Confirmed by MD Odin, Max ([id number]) on 09/05/2018 1:53:38 PM Referred By: Confirmed By:Max Newby MD
== END 2018-09-03 13:02 | disposition expired | DRG 871 ==
LOC: JER 13:13 → JERBED 19:47 → JICU 23:19
PROVIDERS: ADMIT Internal Medicine; ATTEND Internal Medicine
DX: A41.89 Other specified sepsis (principal); R65.21 Severe sepsis with septic shock; J18.9 Pneumonia, unspecified organism; G93.41 Metabolic encephalopathy; J96.01 Acute respiratory failure with hypoxia; J96.02 Acute respiratory failure with hypercapnia; G93.6 Cerebral edema; J98.11 Atelectasis; C64.9 Malignant neoplasm of unspecified kidney, except renal pelvis; C78.00 Secondary malignant neoplasm of unspecified lung; C78.89 Secondary malignant neoplasm of other digestive organs; C79.89 Secondary malignant neoplasm of other specified sites; C79.31 Secondary malignant neoplasm of brain; R64 Cachexia; E87.2 Acidosis; G93.9 Disorder of brain, unspecified; L89.159 Pressure ulcer of sacral region, unspecified stage; E78.5 Hyperlipidemia, unspecified; E11.9 Type 2 diabetes mellitus without complications; K21.9 Gastro-esophageal reflux disease without esophagitis; K22.70 Barrett's esophagus without dysplasia; E86.0 Dehydration; I12.9 Hypertensive chronic kidney disease with stage 1 through stage 4 chronic kidney disease, or unspecified chronic kidney disease; N18.9 Chronic kidney disease, unspecified; K63.5 Polyp of colon; R50.9 Fever, unspecified; R41.82 Altered mental status, unspecified; L98.423 Non-pressure chronic ulcer of back with necrosis of muscle; R00.0 Tachycardia, unspecified; I95.9 Hypotension, unspecified; Z66 Do not resuscitate; Z87.891 Personal history of nicotine dependence; Z68.25 Body mass index [BMI] 25.0-25.9, adult; Z90.5 Acquired absence of kidney
CPT/HCPCS: 36415; 36600; 70450-TC; 70551-TC; 71045-TC-FY; 71250-TC; 80053; 81003; 81015; 82803; 82962; 83605; 84484; 85025; 85610; 85730; 87040; 87070; 87077; 87086; 87186; 87205; 87804; 93005; 93010; 99285-25; J0131; J1100